=== PATIENT | female | born 1990 | race Caucasian/White ===

== ENCOUNTER 2018-06-09 16:46 | Observation (INO) ==
--- NOTE | 2018-06-09 17:29 | OB/GYN Progress Note ---
Date of Encounter: 06/09/18 Time of Encounter: 17:26 - Assessment and Plan (1) 36 weeks gestation of Status: Acute 1. Patient is complaining of a 2 day history of abdominal cramping associated with diarrhea. 2. Patient denies difficulty with bowel movements or urination, denies hematochezia or melena. 3. Patient admits to a thin white discharge per vagina but denies blood, or other malodorous discharge. 4. Patient reports good movement as per usual. Exam: Cardiac rhythm and rate are regular, mildly tachycardic at 112 bpm. There is tenderness to palpation in the lower right as well as lower left quadrants of the abdomen as well as the midline lower abdomen over the bladder. Lungs are clear to auscultation bilaterally, with no evidence of stridor, rhonchi or wheezing. Abdomen is soft, gravid, there is no organomegaly, no rebound tenderness or other peritoneal signs. Plan: 1. Patient urinalysis showed no sign of acute infection patient presentation is likely due to a viral gastroenteritis. 2. Patient instructed to take Imodium for home care. 3. Patient discharged home care with precautions. Patient verbalizes understanding and agreement with this plan. (2) Abdominal cramping Status: Acute Rare contractions on toco. SVE 1 and thick per RN. Discharge home with precautions. (3) Diarrhea Status: Acute Qualifiers: Diarrhea type: presumed infectious Qualified Code(s): R19.7 - Diarrhea, unspecified Subjective - Subjective Principal diagnosis: Abdominal pain Interval history: Patient is a 28-year-old () Antepartum ROS: movement normal, no loss of fluid, no vaginal bleeding Objective - Vital Signs Vital Signs: Intake and Output 06/09/18 06/09/18 06/09/18 07:59 15:59 23:59 Other: Weight 60.781 kg Patient Weight 06/09/18 23:59 Weight 60.781 kg - Exam FHR: category 1 Auscultation: bilateral: normal Abdomen: Present: normal appearance, soft, gravid, tenderness. Absent: rigidity , distention, organomegaly, bruits, mass Uterus: Present: normal, firm
[2018-06-09 17:37] LABS: Bilirubin,Urine Negative (Negative); Blood,Urine Negative (Negative); Clarity,Urine Cloudy (Clear); Color,Urine Yellow (Yellow); Glucose,Urine (UA) Normal (Normal); Ketones,Urine Negative (Negative); Leukocyte Esterase,Urine Trace (Negative); Nitrite,Urine Negative (Negative); PH,Urine 6.5 pH Units (5.0-8.0); Protein,Urine Trace mg/dL (Neg-Trace); Specific Gravity,Urine 1.022 (1.010-1.025); Urobilinogen,Urine Normal (Normal)
[2018-06-09 17:39] LABS: Hyaline Casts,Urine None Seen per lpf (None-Few); Squamous Epithelial Cell,Urine Many per lpf (None-Few)
[2018-06-09 17:49] LABS: Mucus,Urine Many (Few)
[2018-06-09 17:50] LABS: Bacteria,Urine Moderate per hpf (None-Few); RBC,Urine 0-3 per hpf (0-3)
[2018-06-09 17:57] LABS: Amphetamine Screen,Urine Negative ng/mL (Cutoff=1000); Barbiturate Screen,Urine Negative ng/mL (Cutoff=200); Benzodiazepines Screen,Urine Negative ng/mL (Cutoff=200); Cannabinoid Screen,Urine Negative ng/mL (Cutoff = 50); Cocaine Screen,Urine Negative ng/mL (Cutoff= 300); Opiate Screen,Urine Negative ng/mL (Cutoff=300); Phencyclidine Screen,Urine Negative ng/mL (Cutoff=25)
== END 2018-06-09 18:25 | disposition home or self-care (01) ==
LOC: 1NENULAB
PROVIDERS: ADMIT Registered Nurse; ATTEND Registered Nurse

== ENCOUNTER 2018-07-02 07:58 | Inpatient (IN) ==
[2018-07-02] MEDS ORDERED: Metoclopramide 10 MG/2 ML VIAL IVP PRN (08:18)
[2018-07-02] MEDS ORDERED: Famotidine 20 MG/2 ML VIAL IVP PRN ×2 (08:18→20:25)
[2018-07-02] MEDS ORDERED: Naloxone 0.4 MG/ML INJ IVP PRN (08:18)
[2018-07-02] MEDS ORDERED: Ondansetron 4 MG/2 ML VIAL IVP PRN ×2 (08:18→20:25)
[2018-07-02] MEDS ORDERED: Oxytocin 20 units/ LR 1000 mL 20 UNIT/1,000 ML BAG IVC SCH ×2 (08:30→20:25)
[2018-07-02 08:39] LABS: Basophils # 0.1 K/mcL (0.0-0.2); Basophils % 0.5 %; Eosinophils # 0.3 K/mcL (0.0-0.6); Eosinophils % 1.9 %; Immature Granulocytes % 0.6 % (0-4); Lymphocytes # 3.6 K/mcL (0.6-4.6); Lymphocytes % 24.9 %; Mean Corpuscular Hemoglobin 32.9 pg (28.0-33.3); Mean Corpuscular Volume 93.9 fL (83.0-100.0); Mean Platelet Volume 9.8 fL (9.4-12.4); Monocytes # 0.8 K/mcL (0.0-1.3); Monocytes % 5.3 %; Neutrophils # 9.7 K/mcL (1.6-8.9); Platelet Count 277 K/mcL (140-400); Red Blood Count 4.26 M/mcL (3.82-4.97); Red Cell Distribution Width 13.5 % (11.5-14.5); Segmented Neutrophils % 66.8 %
[2018-07-02 08:51] LABS: Amphetamine Screen,Urine Negative ng/mL (Cutoff=1000); Barbiturate Screen,Urine Negative ng/mL (Cutoff=200); Benzodiazepines Screen,Urine Negative ng/mL (Cutoff=200); Cannabinoid Screen,Urine Negative ng/mL (Cutoff = 50); Cocaine Screen,Urine Negative ng/mL (Cutoff= 300); Opiate Screen,Urine Negative ng/mL (Cutoff=300); Phencyclidine Screen,Urine Negative ng/mL (Cutoff=25)
[2018-07-02] MEDS: Ringers Solution, Lactated 1,000 ML IVC SCH ×2 (09:13→16:35)
[2018-07-02] MEDS ORDERED: Nicotine 21 MG PATCH.TD24 TD SCH ×2 (10:15→17:00)
--- NOTE | 2018-07-02 12:16 | OB/GYN History & Physical ---
Date of Encounter: 07/02/18 Time of Encounter: 12:14 Assessment and Plan (1) 39 weeks gestation of Current visit: Yes Status: Acute Admit for IOL GBS negative Pitocin titrate for adequate contractions Patient may have nubain/epidural upon request Anticipate vaginal delivery POC per consult with Dr Kirkland History of Present Illness Chief complaint: IOL HPI: Ms. Do is a 28 year old at 39 weeks and 5 days gestation that presents to labor and delivery for IOL. She has had an uncomplicated course. She states positive movement. She denies headaches, vision changes, epigastric pain, cramping, leaking of fluid, and vaginal bleeding. Labs: GBS negative Heb B neg Rubella positive Varicella positive HIV negative RPR NR Blood type O+ Past Med Surg Social Fam HX - Past Medical History Medical history: no medical history Psychiatric history: no psych history - Past Surgical History Surgical History: no surgical history - Social History Smoking Status: Current every day smoker Packs per day: 0.5 Smokeless Tobacco Status: No Alcohol use: none Drug use: other - Family History Mother Adopted: No Family Member Ethnicity: Non- Living Status: Still Living Hx Family Cardiac Disorders: No Hx Family Respiratory Disorders: No Hx Family Cancer: No Hx Family GI Disorders: No Hx Family Genitourinary Disorders: No Hx Family Endocrine Disorder: No Hx Family Musculoskeletal Disorders: No Hx Family Neuromuscular Disorders: No Hx Family Neurologic Disorders: No Hx Family HEENT Disorders: No Hx Family Autoimmune Disorders: No Hx Family Reproductive Disorders: No Hx Family Psychosocial Disorders: No Hx Family Medical Disorders: No Obstetrical History - Pregnancies : 3 Para: 2 Term: 1 : 1 Ab's: 0 Livin Medications and Allergies Vit Calc,Iron,Folic [ Vitamins] 1 tab PO DAILY 06/09/18 [ History] 3 Allergy/AdvReac Type Severity Reaction Status Date / Time Penicillins Allergy Hives Verified 06/09/18 17:06 Exam - Constitutional Constitutional: well developed, well nourished, no acute distress, average body habitus - HEENT HEENT: Normocephaly, Mucus Membranes Moist - Neck Neck exam: full ROM - Lungs Respiratory exam: CTAB - Cardiovascular Cardiovascular exam: RRR, +S1, +S2 - Abdomen Abdomen: Present: bowel sounds normal, gravid, non tender - Extremities Extremities exam: full ROM, normal capillary refill Deep Tendon Reflex Grade: 2+ Normal - Vagina Vagina: Present: normal moisture - Cervix Dilation: 3 Effacement: 60 Station: -1 - Uterus Uterus exam: Present: normal size, normal contour Results Result Diagrams: 07/02/18 08:25 Abnormal lab results WBC 14.5 K/mcL (4.3-11.1) H 07/02/18 08:25 Neutrophils # 9.7 K/mcL (1.6-8.9) H 07/02/18 08:25 All other labs normal. - VTE Reasons for not Prescribing Prophylaxis: Treatment not Indicated - Low risk for VTE
--- NOTE | 2018-07-02 12:33 | OB Labor Progress Note ---
Date of Encounter: 07/02/18 Time of Encounter: 12:31 Labor Progress Note - Subjective Subjective: Patient resting comfortably - Vital Signs Vital Signs: VSS - Cervix Cervix: 4/80/0 - Heart Tones Heart Tones: 140 category I - [place]: Contractions every 3 minutes - Interventions Interventions: AROM for small amount of clear fluid; IUPC placed without difficulty. Patient and fetus tolerated well. - Plan Plan: Continue routine labor management GBS negative titrate pitocin Patient may have nubain/epidural upon request Anticipate vaginal delivery POC per consult with Dr Kirkland
[2018-07-02] MEDS ORDERED: Bupivacaine-MPF 0.25% 10 ML VIAL EP ONE (14:19)
[2018-07-02] MEDS ORDERED: *HR* FentaNYL (PF) 100 MCG/2 ML VIAL EP ONE (14:19)
[2018-07-02] MEDS ORDERED: *HR* FentaNYL (PF) 100 MCG/2 ML VIAL ONE (14:27)
[2018-07-02] MEDS ORDERED: Bupivacaine-MPF 0.25% 10 ML VIAL ONE (14:27)
[2018-07-02] MEDS ORDERED: Lidocaine -MPF 2% 5 ML VIAL ONE (14:27)
[2018-07-02] MEDS ORDERED: Lidocaine/EPI 1:200k 2% PF 20 ML VIAL ONE (14:27)
[2018-07-02] MEDS ORDERED: Epidural Premix (fent/bupiv) 110 ML EP SCH (14:30)
--- NOTE | 2018-07-02 15:20 | Anesthesia Evaluation PreOp ---
Date of Encounter: 07/02/18 Time of Encounter: 14:21 - Past History Planned Operation: labor epidural Cardiac History: Denies any Significant Hx Pulmonary History: Smoker (1/2 ppd for 12 yrs.) VP INTEGRATION History: Denies Any Significant HX Other Medical History: Denies Any Significant HX Anesthesia History: No Prior Anesthetic Complications (Never had GA. Denies FHAP. Had epidural with previous pregnancies without problems.) Alcohol Use: none Drug use: other Medications and Allergies Vit Calc,Iron,Folic [ Vitamins] 1 tab PO DAILY 06/09/18 [ History] 3 Allergy/AdvReac Type Severity Reaction Status Date / Time Penicillins Allergy Hives Verified 06/09/18 17:06 - Meds/Allergy Pre-op Review Medications Reviewed: Yes Allergies Reviewed: Yes Beta Blockers on Current Med List: No Anesthesia Results - Labs 07/02/18 08:25 Anesthesia Exam VSS and FHTs stable. Height: 5'1" Weight: 62 kg NPO (# of Hours): >8 Pain Scale: 9 Pain Scale Used: Numeric (1 - 10) - HEENT Pupil (Motor): Pupils equal, EOMI Mallampati: II Teeth: Missing (4 on bottom front.) Oral Opening: Greater than 3 - VP INTEGRATION LOC: Oriented VP INTEGRATION Motor: Normal RUE, Normal LUE, Normal RLE, Normal LLE, Normal Face VP IN[employer]GR[employer] Sensory: Normal: RUE, LUE, RLE, LLE, Face - Cardiac Rhythm: Regular - Pulmonary Breath Sounds: bilateral Clear Respiratory Effort: Symmetrical Anesthesia Assess/Plan ASA Score: 2 Modified [place] Scale for Level of Consciousness: Cooperative, oriented, and tranquil Anesthetic Plan: Regional Monitoring Plan: Standard Monitors
--- NOTE | 2018-07-02 15:25 | Anesthesia Procedures ---
Date of Encounter: 07/02/18 Time of Encounter: 14:29 Procedures: Anesthesia - Epidural/Spinal Patient ID/Chart reviewed: Yes Patient examined: Yes OB Eval: Gestational age: 39 OB Eval: : 3 OB Eval: Hx Para: 2 OB Eval: Dilated at (cm): 3 OB Eval: Contractions: Non-stressed pattern Consent Obtained: Yes Supplemental Oxygen: None/Room Air Site Prep: Aseptic Technique, Sterile prep and drape, Povidone-Iodine 1% Patient position: upright Local Anesthetic: Lidocaine 1% Amount of Local Anesthetic used: 3 Touhy Needle Gauge: 18 Touhy Needle Depth (cm): 6 Catheter Depth at Skin (cm): 15 Test Dose (1.5% Lido + Epi): Volume given (mls): 2 Test Dose Result: Negative Loading Dose: 0.25% Marcaine (mls): 8 Loading Dose: Fentanyl (mcg): 100 Loading Dose Administered: Thru Catheter Infusion Med: 0.125% Bupivacaine w/ 2 mcg/ml Fentanyl Infusion Rate (mls/hr): [address]: Tegaderm, Tape Loss of Resistance (DONG): Yes Blood: Yes (unable to clear with flush and/or pulling back catheter. see note below) CSF: No Paresthesia: No Procedure: blood in catheter upon placement at 18cm. Pulled back to 15cm and flushed with saline, unable to clear. Removed catheter. re-placed epidural in same interspace , thread catheter to 15cm, no blood in catheter and test dose negative. Vitals + FHT's: 3 Vital Signs Time 1429 1455 1500 BP 147/79 133/77 124/69 Pulse 77 78 87 FHTs 130 130 130
--- NOTE | 2018-07-02 18:02 | OB/GYN Procedure Note ---
Delivery - Delivery Date: 07/02/18 Provider: Cande Linder Intrapartum events: none Delivery induction: oxytocin Delivery augmentation: rupture of membranes Delivery monitor: external FHT, external uterine, internal uterine Anesthesia: epidural Quantitated Blood Loss: 70 - (s) A Infant Delivery Date: 07/02/18 Infant Delivery Time: 17:35 Presentation: vertex Position: DORIS Route of delivery: Gender: Male Viability: Viable Pounds: 6 Ounces: 6 Weight Gram: 2.89 kg at 1 minute: 8 at 5 mins: 9 Shoulder Dystocia: not encountered Specimens collected: cord blood Placenta: spontaneous Cord: 3 umbilical vessels - Repair Episiotomy: none Laceration Description: None - Complications Delivery complications: none Delivery comments: Patient progressed to complete and began spontaneously pushing to of viable , vigorous male infant in the DORIS position over intact perineum. No nuchal, no shoulder, and no meconium encountered. Infant placed onto maternal abdomen; warmed, dried, and stimulated. Apgars 8 and 9 at one and five minutes of age. Cord double clamped and cut after pulsations ceased with the assistance of the FOB. Placenta delivered spontaneously and appears grossly intact with 3 vessel cord. Uterus firm and U/3. EBL 70mL. Infant and mother stable in recovery in kangaroo care. Dr Kirkland notified of delivery. Dr Jose Manuel Peña ED resident assisted with delivery. - Disposition Mom disposition: stable in LDR [place] disposition: stable in LDR
[2018-07-02] MEDS ORDERED: Oxytocin 20 units/ LR 1000 mL 20 UNIT/1,000 ML BAG IVC ONE (19:54)
[2018-07-02] MEDS ORDERED: Acetaminophen 325 MG TABLET PO PRN (20:25)
[2018-07-03] MEDS: Ibuprofen 600 MG TABLET PO PRN ×3 (02:58→14:57)
[2018-07-03 03:09] LABS: Basophils # 0.1 K/mcL (0.0-0.2); Basophils % 0.3 %; Eosinophils # 0.3 K/mcL (0.0-0.6); Eosinophils % 1.2 %; Immature Granulocytes % 0.6 % (0-4); Lymphocytes # 4.4 K/mcL (0.6-4.6); Lymphocytes % 19.6 %; Mean Corpuscular HGB Conc 35.1 g/dL (31.6-35.5); Mean Corpuscular Hemoglobin 33.2 pg (28.0-33.3); Mean Corpuscular Volume 94.4 fL (83.0-100.0); Mean Platelet Volume 9.9 fL (9.4-12.4); Monocytes # 1.8 K/mcL (0.0-1.3); Neutrophils # 15.8 K/mcL (1.6-8.9); Platelet Count 257 K/mcL (140-400); Red Blood Count 3.92 M/mcL (3.82-4.97); Red Cell Distribution Width 13.2 % (11.5-14.5); Segmented Neutrophils % 70.3 %
[2018-07-03] MEDS ORDERED: NON-FORMULARY MEDICATION 1 EACH EACH (Prenatal Vit Calc,Iron,Folic [Prenatal Vitamins] 1 T PO SCH (09:00)
[2018-07-03] MEDS ORDERED: Nicotine 21 MG PATCH.TD24 TD SCH ×2 (09:00)
[2018-07-03] MEDS ORDERED: Prenatal Vit/FA 1 EACH TABLET PO SCH (09:00)
--- NOTE | 2018-07-03 12:34 | Discharge Summary ---
Date of Encounter: 07/03/18 Time of Encounter: 12:31 - Discharge Diagnosis (1) Vaginal delivery Priority: Primary Status: Acute Comments: Pain well controlled with by mouth pain meds Tolerating regular diet Ambulating independently Voiding independently Passing flatus, no BM yet Lochia light Discharge home - Discharge Medications Prescriptions: Ibuprofen [Motrin] 600 mg PO Q6HR PRN #30 tablet PRN Reason: Cramping Docusate [Colace] 100 mg PO BID #30 capsule Home Medications: Vit Calc,Iron,Folic [ Vitamins] 1 tab PO DAILY 06/09/18 [ History] Acetaminophen [Tylenol] 650 mg PO Q6HR PRN tablet 07/03/18 [Rx] Docusate [Colace] 100 mg PO BID #30 capsule 07/03/18 [Rx] Ibuprofen [Motrin] 600 mg PO Q6HR PRN #30 tablet 07/03/18 [Rx] Allergies/Adverse Reactions: 3 Allergy/AdvReac Type Severity Reaction Status Date / Time Penicillins Allergy Hives Verified 06/09/18 17:06 Data Procedures and tests throughout hospitalization: Laboratory Tests 07/02/18 07/02/18 07/03/18 08:25 08:25 02:23 WBC 14.5 H 22.4 H D RBC 4.26 3.92 Hgb 14.0 13.0 Hct 40.0 37.0 MCV 93.9 94.4 MCH 32.9 33.2 MCHC 35.0 35.1 RDW 13.5 13.2 Plt Count 277 257 MPV 9.8 9.9 Immature Gran % 0.6 0.6 Seg Neutrophils % 66.8 70.3 Lymphocytes % 24.9 19.6 Monocytes % 5.3 8.0 Eosinophils % 1.9 1.2 Basophils % 0.5 0.3 Neutrophils # 9.7 H 15.8 H Lymphocytes # 3.6 4.4 Monocytes # 0.8 1.8 H Eosinophils # 0.3 0.3 Basophils # 0.1 0.1 Urine Opiates Screen Negative Ur Barbiturates Screen Negative Ur Phencyclidine Scrn Negative Ur Amphetamines Screen Negative U Benzodiazepines Scrn Negative Urine Cocaine Screen Negative U Marijuana (THC) Screen Negative Ur Drug Screen Interp See Below Labs on day of discharge: Labs from last 24 hours 07/03/18 02:23 WBC 22.4 H D RBC 3.92 Hgb 13.0 Hct 37.0 MCV 94.4 MCH 33.2 MCHC 35.1 RDW 13.2 Plt Count 257 MPV 9.9 Immature Gran % 0.6 Seg Neutrophils % 70.3 Lymphocytes % 19.6 Monocytes % 8.0 Eosinophils % 1.2 Basophils % 0.3 Neutrophils # 15.8 H Lymphocytes # 4.4 Monocytes # 1.8 H Eosinophils # 0.3 Basophils # 0.1 Date of admission: 07/02/18 07:58 Primary care physician: Zuleika Chester CNP Consults: 07/02/18 20:25 Consult to Noodle Maker [CONS] Routine Comment: Vaginal delivery, consult needed Discharging clinician: Cande Valle Anticipated date of discharge: 07/03/18 - Patient Status Disposition: Home, Self-Care Condition: Good Functional capacity at discharge: independent ambulation Overall status at discharge: patient is progressing back to baseline - Discharge Instructions Follow Up With: Zuleika Chester CNP [Primary Care Provider] - Cande Linder CNM [Advanced Practice Nurse] - - Diet and Activity Activity: increase activity as tolerated Diet: regular diet Hospital Course Reason for admission: rupture of membranes, IUP at term Delivery: Episiotomy: none Laceration: none Other procedures: none complications: none Discharge diagnosis: IUP at term delivered [place] baby: female Time Attestation: Total time spent providing and/or coordinating discharge services: Time Spent: Less than 30 minutes Exam - Constitutional Vitals: Temp Pulse Resp BP Pulse Ox 98.0 F 110 14 128/76 97 07/03/18 08:56 07/03/18 08:56 07/03/18 08:56 07/03/18 08:56 07/03/18 08:56 General appearance IM: A&O X 3 - Respiratory Respiratory exam: Present: CTAB - Cardiovascular Cardiovascular exam IM: Present: RRR, +S1, +S2 - GI/Abdominal GI/Abdominal exam IM: normal bowel sounds, no peritoneal signs - Rectal Rectal exam: deferred - Uterine Tone: Firm Uterus Position: At Umbilicus, Midline - Extremities Exam Extremities exam IM: Present: normal capillary refill, radial pulses palpable and symmetrical - Neurological Exam Neurological exam: alert, CN II-XII intact, normal gait, oriented X3, reflexes normal, no focal deficits, strengths equal and symetr throughout - Psychiatric Additional comments: Patient denies history of depression. Signs and symptoms of depression discussed and patient verbalizes understanding of when to seek help
[2018-07-03 14:55] VITALS: BP 125/80
== END 2018-07-03 16:54 | disposition home or self-care (01) | DRG 560 ==
LOC: 1NENULAB 07:58 → 1NENUOBS 20:19
PROVIDERS: ADMIT Advanced Practice Midwife; ATTEND Advanced Practice Midwife